=== PATIENT | female | born 1990 | race Caucasian/White ===

== ENCOUNTER → 2021-05-05 08:36 | Outpatient (CLI) | payer OTHER, SELFPAY ==
--- NOTE | 2021-05-05 08:43 | DI.MRI.S_ITS ---
PROCEDURE: MR ANKLE LT WO CON INDICATIONS: Fracture of lateral malleolus of left fibula TECHNIQUE: Noncontrast sagittal T1 spin echo and T2 fast spin echo with fat saturation, axial proton density fast spin echo and T2 fast spin echo with fat saturation, coronal T1 spin echo and T2 fast spin echo with fat saturation through the ankle/hindfoot. COMPARISON: None. FINDINGS: Image quality: Excellent. Bones and joints: There is a nondisplaced fracture of the distal fibula with mild surrounding ill-defined T2 signal elevation. No hindfoot coalitions. No osteochondral injuries of the talar dome. No pathologic joint effusions. Medial structures: The posterior tibialis, flexor digitorum longus, and flexor hallucis longus tendons are intact. The posterior tibial neurovascular bundle appears normal within the tarsal tunnel, without extrinsic mass effect. The deep layer (anterior and posterior tibiotalar ligaments) and superficial layer (tibionavicular, tibiospring, and tibiocalcaneal ligaments) of the deltoid ligament appear normal. The spring ligament components (superomedial calcaneonavicular, medioplantar oblique calcaneonavicular, and inferoplantar longitudinal ligaments) are intact. Lateral structures: There is moderate ill-defined T2 signal elevation in the small amount of fluid within the anterolateral soft tissues, consistent with soft tissue injury. The anterior talofibular, calcaneofibular, and posterior talofibular ligaments appear intact. More superiorly, the anterior and posterior tibiofibular ligaments appear intact, as is the intermalleolar ligament. The tibiofibular syndesmosis is normal in width at 2 mm or less. The peroneus longus and brevis tendons demonstrate normal location and morphology. Adjacent bony peroneal tubercle and retrotrochlear prominence are normal in size. The sinus tarsi demonstrates normal fatty signal, without edema, fibrosis, or cyst formation. Visualized sinus tarsi components (cervical ligament, interosseous talocalcaneal ligament, roots of the inferior extensor retinaculum) appear normal. The calcaneonavicular and calcaneocuboid components of the bifurcate ligament appear intact. The dorsal calcaneocuboid ligament appears intact. Anterior structures: The tibialis anterior, extensor hallucis longus, and extensor digitorum longus tendons appear intact. The dorsal talonavicular ligament appears intact. Posterior and plantar structures: Achilles tendon is intact. Medial and lateral bands of the plantar fascia are of normal thickness. No abductor digiti quinti muscle atrophy to suggest Dunham neuropathy. IMPRESSION: Nondisplaced distal fibular fracture with adjacent soft tissue injury. Dictated by: Litzy Mclean M.D. on 05/05/2021 at 10:30 Approved by: Litzy Mclean M.D. on 05/05/2021 at 10:43
== END ==
PROVIDERS: Visit Provider Orthopaedic Surgery
DX: S82.62XS Displaced fracture of lateral malleolus of left fibula, sequela (principal)
CPT/HCPCS: 73721